=== PATIENT | female | born 1960 | race Two or more races ===

== ENCOUNTER 2021-08-02 06:00 | Day surgery (SDC) | payer OTHER ==
[~2021-08-02] VITALS: Ht 160 cm; Wt 73.9 kg
[~2021-08-02 06:00] MED LIST: CRESTOR20 MG PO; SYNTHROID88 MCG PO
[2021-08-02] MEDS ORDERED: ULTRACET PO (09:55)
== END 2021-08-02 12:05 | disposition home or self-care (01) ==
LOC: CIR.AMB 06:00
PROVIDERS: ATTEND Surgery
DX: C50.812 Malignant neoplasm of overlapping sites of left female breast (principal); E78.00 Pure hypercholesterolemia, unspecified; E03.9 Hypothyroidism, unspecified; Z20.822 Contact with and (suspected) exposure to COVID-19

== ENCOUNTER 2022-02-07 06:24 | Inpatient (IN) | payer OTHER ==
[~2022-02-07] VITALS: Ht 160 cm; Wt 65.3 kg
[~2022-02-07 06:24] MED LIST changes: +CLARITIN10 M1 PO; +PEPCID AC10 MG PO; +ULTRACET PO
== END 2022-02-08 14:03 | disposition home or self-care (01) | DRG 580 ==
LOC: CIR.AMB 06:24 → SURH 19:44 → O/R 19:44 → SURH 19:49
PROVIDERS: Plastic Surgery; ADMIT Surgery; ATTEND Surgery
PROC: 0HHT0NZ Insertion of Tissue Expander into Right Breast, Open Approach (ICD-10-PCS; 2022-02-07)
PROC: 0KXK0Z6 Transfer Right Abdomen Muscle, Transverse Rectus Abdominis Myocutaneous Flap, Open Approach (ICD-10-PCS; 2022-02-07)
PROC: 07B60ZZ Excision of Left Axillary Lymphatic, Open Approach (ICD-10-PCS; principal; 2022-02-07 07:00)
PROC: 0HTV0ZZ Resection of Bilateral Breast, Open Approach (ICD-10-PCS; 2022-02-07 07:00)
DX: D05.12 Intraductal carcinoma in situ of left breast (principal); C77.3 Secondary and unspecified malignant neoplasm of axilla and upper limb lymph nodes; N60.21 Fibroadenosis of right breast; Z20.822 Contact with and (suspected) exposure to COVID-19; N62 Hypertrophy of breast; Z90.11 Acquired absence of right breast and nipple